=== PATIENT | female | born 1995 | race Two or more races ===

== ENCOUNTER 2020-12-27 12:43 | Emergency (ER) | payer OTHER ==
[~2020-12-27] VITALS: Ht 170.2 cm; Wt 83.5 kg
[2020-12-27] MEDS ORDERED: AMOX-CLAV 875-1 EACH PO (16:35)
[2020-12-27] MEDS ORDERED: KETO10TA2 PO (16:35)
[2020-12-27] MEDS ORDERED: CLEOCIN HCL300 MG PO (16:35)
== END 2020-12-27 16:45 | disposition home or self-care (01) ==
LOC: ER 12:43
DX: N61.0 Mastitis without abscess (principal)

== ENCOUNTER 2021-01-07 13:00 | Emergency (ER) | payer OTHER ==
[~2021-01-07] VITALS: Ht 170.2 cm; Wt 83.5 kg
[~2021-01-07 13:00] MED LIST: AMOX-CLAV 875-1 EACH PO; CLEOCIN HCL300 MG PO; KETO10TA2 PO
[2021-01-07] MEDS ORDERED: DUI500 PO (14:42)
[2021-01-07] MEDS ORDERED: KETO10TA2 PO (14:44)
== END 2021-01-07 14:50 | disposition home or self-care (01) ==
LOC: ER 13:00
DX: N61.1 Abscess of the breast and nipple (principal)

== ENCOUNTER 2021-01-25 17:04 | Emergency (ER) | payer OTHER ==
[~2021-01-25] VITALS: Ht 170.2 cm; Wt 83.9 kg
[~2021-01-25 17:04] MED LIST changes: +DUI500 PO
== END 2021-01-25 21:02 | disposition home or self-care (01) ==
LOC: ER 17:04
DX: S13.4XXA Sprain of ligaments of cervical spine, initial encounter (principal); S90.811A Abrasion, right foot, initial encounter; S40.012A Contusion of left shoulder, initial encounter; S23.3XXA Sprain of ligaments of thoracic spine, initial encounter; Y08.89XA Assault by other specified means, initial encounter; Y93.89 Activity, other specified; Y92.89 Other specified places as the place of occurrence of the external cause; Y99.8 Other external cause status

== ENCOUNTER 2021-04-06 12:10 | Emergency (ER) | payer OTHER ==
[~2021-04-06] VITALS: Ht 170.2 cm; Wt 83.9 kg
[2021-04-06] MEDS ORDERED: MUPIROCIN1 G1 TOP (15:03)
[2021-04-06] MEDS ORDERED: BACTRIM DS TAB1 EACH PO (15:03)
[2021-04-06] MEDS ORDERED: KETO10TA2 PO (15:03)
== END 2021-04-06 15:02 | disposition home or self-care (01) ==
LOC: ER 12:10
DX: N63.0 Unspecified lump in unspecified breast (principal)

== ENCOUNTER 2021-05-12 16:44 | Emergency (ER) | payer OTHER ==
[~2021-05-12] VITALS: Ht 170.2 cm; Wt 83.9 kg
[~2021-05-12 16:44] MED LIST changes: +BACTRIM DS TAB1 EACH PO; +MUPIROCIN1 G1 TOP
[2021-05-12] MEDS ORDERED: CIPRO500 MG PO (19:55)
[2021-05-12] MEDS ORDERED: PEPCID AC20 MG PO (19:55)
== END 2021-05-12 20:14 | disposition home or self-care (01) ==
LOC: ER 16:44
DX: K52.9 Noninfective gastroenteritis and colitis, unspecified (principal); Z03.818 Encounter for observation for suspected exposure to other biological agents ruled out

== ENCOUNTER 2021-06-13 12:33 | Emergency (ER) | payer OTHER ==
[~2021-06-13] VITALS: Ht 170.2 cm; Wt 84.8 kg
[~2021-06-13 12:33] MED LIST changes: +CIPRO500 MG PO; +PEPCID AC20 MG PO
[2021-06-13] MEDS ORDERED: CIPRO500 MG PO (15:29)
== END 2021-06-13 15:44 | disposition home or self-care (01) ==
LOC: ER 12:33
DX: B37.3 Candidiasis of vulva and vagina (principal)

== ENCOUNTER 2022-06-25 09:31 | Emergency (ER) | payer OTHER ==
[~2022-06-25] VITALS: Ht 170.2 cm; Wt 93.4 kg
== END 2022-06-25 12:19 | disposition home or self-care (01) ==
LOC: ER 09:31
DX: N61.1 Abscess of the breast and nipple (principal)